=== PATIENT | female | born 1940 | race Caucasian/White ===

== ENCOUNTER 2022-08-21 09:22 | Emergency (ER) | payer OTHER ==
[~2022-08-21] VITALS: Ht 152.4 cm; Wt 43.1 kg
--- NOTE | 2022-08-21 09:25 | NUR ---
Patient to ER bed 8 to gown for evaluation. Side rails up. Report given to JOSE DE JESUS LEOS.
[2022-08-21 09:27] VITALS: BP_SYST 112
--- NOTE | 2022-08-21 09:29 | NUR ---
ER DR. BENEDICT AT THE BEDSIDE EXAMINING PT
--- NOTE | 2022-08-21 09:37 | NUR ---
Pt brought in by BLS from home, Chief complaint mechanical fall related to transferance from [place]/walker attempt to sit down;denies syncope denies LOC. Skin intact, no visible bumps, pt has mild complaints of pain to neck and back. Pt concerned with history of blood thinners.
--- NOTE | 2022-08-21 09:42 | NUR ---
pt to ct
--- NOTE | 2022-08-21 10:01 | NUR ---
Pt returns from CT scan positioned to comfort, vital signs stable. No complaints of pain at this time.
--- NOTE | 2022-08-21 11:02 | NUR ---
Pt recalls family phone number. 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 Pt requests musculoskeletal pain relief for lumbar region . Md notified.
[2022-08-21] MEDS ORDERED: TRAM50TA2 PO (11:11)
[2022-08-21] MEDS ORDERED: LIDO1ADH14 TP (11:37)
[2022-08-21 11:40] VITALS: BP_SYST 112
--- NOTE | 2022-08-21 11:40 | NUR ---
Patient given written and verbal discharge instructions and verbalizes understanding. ER MD discussed with patient the results and treatment provided. Patient in stable condition. ID arm band removed. Rx of TRAMADOL given. Patient educated on pain management and to follow up with PMD. Pain Scale 0/10. Opportunity for questions provided and answered. Medication side effect fact sheet provided.
== END 2022-08-21 11:40 | disposition home or self-care (01) ==
LOC: SED 09:22
DX: S30.0XXA Contusion of lower back and pelvis, initial encounter (principal); S09.90XA Unspecified injury of head, initial encounter; Z79.899 Other long term (current) drug therapy; W01.0XXA Fall on same level from slipping, tripping and stumbling without subsequent striking against object, initial encounter; Y93.89 Activity, other specified; Y92.89 Other specified places as the place of occurrence of the external cause; Y99.8 Other external cause status
CPT/HCPCS: 70450-TC; 72125-TC; 72131; 76376; 99284